=== PATIENT | male | born 1950 | race Caucasian/White ===

== ENCOUNTER → 2018-08-08 | Outpatient (REF) | payer MEDICARE ==
[~2018-08-08] MED LIST: CELEXA40 M1 PO; ENALAPRIL10 MG PO; FENOFIBRATE145 MG PO; GABAPENTIN300 MG PO; GLIPIZIDE ER5 MG PO; LOVASTATIN40 M1 PO
== END | disposition home or self-care (01) ==
LOC: CT 10:31
PROVIDERS: ATTEND Internal Medicine
DX: R42 Dizziness and giddiness (principal)

== ENCOUNTER 2018-10-10 14:55 | Emergency (ER) | payer MEDICARE ==
[~2018-10-10] VITALS: Ht 170.2 cm; Wt 94.0 kg
[2018-10-10 14:55] VITALS: BP 172/78
[2018-10-10] MEDS ORDERED: TRAZODONE50 MG PO (15:14)
[2018-10-10 16:47] LABS: URINE BILIRUBIN - DIPSTICK NEGATIVE (NEGATIVE); URINE BLOOD DIPSTICK NEGATIVE (NEGATIVE); URINE COLOR YELLOW; URINE GLUCOSE - DIPSTICK NEGATIVE (NEGATIVE); URINE KETONE NEGATIVE (NEGATIVE); URINE LEUK ESTERASE NEGATIVE (NEGATIVE); URINE NITRITE - DIPSTICK NEGATIVE (Negative); URINE PROTEIN - DIPSTICK NEGATIVE (NEG-TRACE); URINE SPECIFIC GRAVITY >=1.030; URINE UROBILINOGEN - DIPSTICK 0.2 E.U./dL (0.2)
[2018-10-10 16:49] LABS: URINE CLARITY CLEAR
[2018-10-10] MEDS ORDERED: TRAMADOL HYDROC50 MG PO (17:36)
[2018-10-10] MEDS ORDERED: FLEXERIL PO (17:36)
[2018-10-10] MEDS ORDERED: DICLOFENAC75 MG PO (17:51)
[2018-10-10] MEDS ORDERED: MELOXICAM7.5 MG PO (17:56)
[2018-10-10] MEDS ORDERED: MIRAPEX0.25 MG PO (17:57)
[2018-10-10] MEDS ORDERED: TAMSULOSIN HCL0.4 MG PO (17:57)
[2018-10-10] MEDS ORDERED: TRAMADOL HCL50 MG PO (17:58)
== END 2018-10-10 18:10 | disposition home or self-care (01) ==
LOC: ED 14:55
DX: M54.5 Low back pain (principal); M62.830 Muscle spasm of back; I10 Essential (primary) hypertension; E11.9 Type 2 diabetes mellitus without complications; E78.5 Hyperlipidemia, unspecified; N40.0 Benign prostatic hyperplasia without lower urinary tract symptoms

== ENCOUNTER → 2019-01-16 | Outpatient (REF) | payer MEDICARE ==
[~2019-01-16] VITALS: Ht 170.2 cm; Wt 93.9 kg
[~2019-01-16] MED LIST changes: +DICLOFENAC75 MG PO; +FLEXERIL PO; +MELOXICAM7.5 MG PO; +MIRAPEX0.25 MG PO; +TAMSULOSIN HCL0.4 MG PO; +TRAMADOL HCL50 MG PO; +TRAMADOL HYDROC50 MG PO; +TRAZODONE50 MG PO
[2019-01-16 09:03] VITALS: BP 146/70
== END ==
LOC: FIORUCCI 08:39
PROVIDERS: ATTEND Surgery
PROC: 0H9DXZZ Drainage of Right Lower Arm Skin, External Approach (ICD-10-PCS; principal; 2019-01-16)
DX: L02.413 Cutaneous abscess of right upper limb (principal); S51.851A Open bite of right forearm, initial encounter; W55.01XA Bitten by cat, initial encounter

== ENCOUNTER → 2019-01-20 | Outpatient (REF) | payer MEDICARE ==
[2019-01-20 11:24] VITALS: BP 158/81
== END ==
LOC: FIORUCCI 01-18 09:30
PROVIDERS: ATTEND Surgery
DX: Z48.01 Encounter for change or removal of surgical wound dressing (principal)

== ENCOUNTER 2019-02-16 17:54 | Emergency (ER) | payer MEDICARE ==
[~2019-02-16] VITALS: Ht 170.2 cm; Wt 92.8 kg
[~2019-02-16 17:54] MED LIST changes: -FENOFIBRATE145 MG PO; +FENOFIBRATE160 MG PO; +MIRAPEX0.125 MG PO; -MIRAPEX0.25 MG PO
[2019-02-16] MEDS ORDERED: AMLODIPINE5 MG PO (19:15)
[2019-02-16 19:16] LABS: HEMATOCRIT 38.8 % (39.0-50.0); HEMOGLOBIN 12.5 g/dl (14.0-18.0); IMMATURE GRANULOCYTES 0.2 % (0.0-5.0); MEAN CELL VOLUME 91.5 fL CALC (80.0-100.0); MEAN CORPUSCULAR HGB 29.5 pG CALC (26.0-32.0); MEAN CORPUSCULAR HGB CONC 32.2 g/L CALC (32.0-36.0); NEUT# 5.41 thou/uL (1.82-7.42); RED BLOOD COUNT 4.24 mill/uL (4.70-6.10)
[2019-02-16 19:37] LABS: ALKALINE PHOSPHATASE 31 u/l (38-126); ANION GAP 17 (6-22 (CALC)); BILIRUBIN, TOTAL 0.5 mg/dL (0.0-1.4); BUN 18 mg/dL (8-23); BUN/CREATININE RATIO 15 (12-20 (CALC)); CARBON DIOXIDE 21 mmol/l (22-30); CHLORIDE 107 mmol/l (95-108); CREATININE 1.2 mg/dL (0.7-1.3); GFR > 60 ML/MIN (>=60 (CALC)); GFR FOR AFR.AMER. > 60 ML/MIN (>=60 (CALC)); POTASSIUM 4.8 mmol/l (3.5-5.1); SGOT/AST 36 u/l (19-48); SODIUM 140 mmol/l (137-146)
[2019-02-16 19:46] LABS: ALBUMIN 4.9 g/dL (3.2-5.0)
[2019-02-16] MEDS ORDERED: AUGMENTIN875TAB PO (22:36)
[2019-02-16 22:50] VITALS: BP 128/67
== END 2019-02-16 22:53 | disposition home or self-care (01) ==
LOC: ED 17:54
PROVIDERS: Emergency Medicine
DX: L02.413 Cutaneous abscess of right upper limb (principal); S51.851A Open bite of right forearm, initial encounter; I10 Essential (primary) hypertension; W55.01XA Bitten by cat, initial encounter

== ENCOUNTER 2019-02-23 09:28 | Day surgery (SDC) | payer MEDICARE ==
[~2019-02-23 09:28] MED LIST changes: +AMLODIPINE5 MG PO; +AUGMENTIN875TAB PO
[2019-02-23 10:24] LABS: BARBITURATES NEGATIVE (NEGATIVE); COCAINE NEGATIVE (NEGATIVE); METHADONE NEGATIVE (NEGATIVE); OXCYCODONE NEGATIVE (NEGATIVE); TETRAHYDROCANNABIONOL POSITIVE (NEGATIVE); TRICYLIC ANTIDEPRESSANTS NEGATIVE (NEGATIVE)
[2019-02-23] MEDS ORDERED: PERCOCET 5/325M1 TAB PO ×2 (11:49→11:51)
[2019-02-23 12:35] VITALS: BP 122/58
[2019-02-23] MEDS ORDERED: AUGMENTIN875TAB PO (12:50)
== END 2019-02-23 13:05 | disposition home or self-care (01) ==
LOC: ORM 09:28
PROVIDERS: ATTEND Surgery
PROC: 0H9DXZZ Drainage of Right Lower Arm Skin, External Approach (ICD-10-PCS; principal; 2019-02-23)
DX: L02.413 Cutaneous abscess of right upper limb (principal); S51.851A Open bite of right forearm, initial encounter; W55.01XA Bitten by cat, initial encounter
CPT/HCPCS: J0131

== ENCOUNTER 2023-01-30 14:47 | Inpatient (IN) | payer MEDICARE ==
[~2023-01-30] VITALS: Ht 170.2 cm; Wt 73.6 kg
[2023-01-30] VITALS (18 sets, daily range): BP systolic 83–125; BP diastolic 46–66
[~2023-01-30 14:47] MED LIST changes: -MIRAPEX0.125 MG PO; +PERCOCET 5/325M1 TAB PO; +PRAMIPEXOLE D0.25 MG PO; +TRAZODONE100 MG PO; -TRAZODONE50 MG PO
[2023-01-30 15:44] LABS: BASO% 0.2 % (0-3); EOS% 0.3 % (0-8); HEMATOCRIT 33.8 % (39.0-50.0); HEMOGLOBIN 10.9 g/dl (14.0-18.0); IMMATURE GRANULOCYTES 0.6 % (0.0-5.0); LYMPH% 7.6 % (15-41); MEAN CELL VOLUME 90.4 fL CALC (80.0-100.0); MEAN CORPUSCULAR HGB 29.1 pG CALC (26.0-32.0); MEAN CORPUSCULAR HGB CONC 32.2 g/dL CAL (32.0-36.0); MONO% 3.4 % (2-13); NEUT# 9.04 thou/uL (1.82-7.42); NEUT% 87.9 % (42-76); RED BLOOD COUNT 3.74 mill/uL (4.70-6.10); RED CELL DISTRI WIDTH 12.9 % (11.5-15.5)
[2023-01-30 15:58] LABS: POTASSIUM 4.7 mmol/l (3.5-5.1); TOTAL PROTEIN 6.7 g/dL (6.3-8.2)
[2023-01-30 16:03] LABS: ALBUMIN 3.6 g/dL (3.2-5.0); BILIRUBIN, TOTAL 0.8 mg/dL (0.2-1.3); CREATININE 9.8 mg/dL (0.7-1.3)
--- NOTE | 2023-01-30 18:19 | NUR ---
per ems, pt is coming from home for weakness and low bp. per ems, they were called to the pts house yeterday for low bs, and pt refused transport to er.
--- NOTE | 2023-01-30 19:15 | NUR ---
ASSUMED CARE OF THE PT AT THIS TIME
--- NOTE | 2023-01-30 20:25 | NUR ---
CBG 37 EDP MADE AWARE AND NEW ORDERS RECEIVED, D50 AM PULLED AND GIVEN TO THE PT.
--- NOTE | 2023-01-30 21:04 | NUR ---
CBG 229 EDP MADE AWARE.
--- NOTE | 2023-01-30 21:57 | NUR ---
PT IS TRANSFERRED TO [facility]. REPORT GIVEN TO MANJINDER. PT TRANSPORTED VIA STRETCHER. 16 FR WHITE WAS INITIATED PER ADMITTED PHYSICIAN'S REQUEST.PT TOLERATED PLACEMENT WELL.
--- NOTE | 2023-01-30 22:00 | NUR ---
PT ARRIVE TO UNIT VIA STRETCHER ACCOMPANIED BY ER STAFF, PT SLIDE HIMSEF TO BED. PT A&OX3 ABLE TO MADE NEEDS KNOW. PT IS ON 2L VIA NASAL CANNULA. BREATHING IS EVEN AND UNLABORED. NO S/S OF DISTRESS NOTED. NON-PRODUCTIVE COUGH NOTED. PT HAS A 20G TO LAC AND RAC BOTH PATENT AND FLUSHES WELL. PT HAS A BRUISE TO RIGHT KNEE AND A ABRASION TO RIGHT ILIAC REGION. AND SCRATCHES TO BOTH OF HIS FEET. PT IS AIRBORN ISOLATION. PT REPORT TRAVELING TO [facility] VIA SHIP AND WHEN RETURN HE BEEN HAVING POOR APPETITE AND GETTING WEEK. PT HAS A WHITE CATH IN PLACE DRAING WELL. URINE IS CLEAR AND YELLOW. PT IS ON TELE. NO NEED OR CONCERS VOICED AT THIS TIME. CALL LIGHT IN REACH AND BED IN LOWEST POSITION.
--- NOTE | 2023-01-31 00:11 | NUR ---
PT REPORT NOT HAVING A BM IN THE LAST 3 DAYS. PT REQUESTED SOME LAXITIVES. MILK OF MAG. ADMINISTERED PER DEC. MED REC COMPLETED. NO OTHER NEED OR CONCERS VOINCED. NO S/S OF DISTRESS NOTED. CALL LIGHT IN REACH AND BED IN LOWEST POSITION.
[2023-01-31] MEDS ORDERED: FINASTERIDE5 MG PO (00:52)
[2023-01-31] MEDS ORDERED: COZAAR50 MG PO (01:08)
[2023-01-31] MEDS ORDERED: KP FOLIC ACID1 MG PO (01:10)
[2023-01-31] MEDS ORDERED: COLACE100 MG PO (01:12)
[2023-01-31 01:28] VITALS: BP 99/47
[2023-01-31 01:42] LABS: URINE BILIRUBIN - DIPSTICK NEGATIVE (NEGATIVE); URINE BLOOD DIPSTICK LARGE (NEGATIVE); URINE COLOR YELLOW; URINE GLUCOSE - DIPSTICK NEGATIVE (NEGATIVE); URINE KETONE NEGATIVE (NEGATIVE); URINE PH 5.5 (4.5-8.0); URINE PROTEIN - DIPSTICK 30 mg/dL (NEG-TRACE); URINE SPECIFIC GRAVITY 1.025; URINE UROBILINOGEN - DIPSTICK 0.2 E.U./dL (0.2)
[2023-01-31 01:51] LABS: URINE NITRITE - DIPSTICK NEGATIVE (Negative)
[2023-01-31 01:53] LABS: URINE LEUK ESTERASE NEGATIVE (NEGATIVE)
[2023-01-31 01:54] LABS: URINE BACTERIA MODERATE hpf; URINE EPITHELIAL CELLS MODERATE EPI/hpf (0-FEW); URINE YEAST MODERATE hpf
[2023-01-31 04:10] VITALS: BP 94/51
--- NOTE | 2023-01-31 04:53 | NUR ---
PT IN BED RESTING WITH EYES CLOSED. BREATHING IS EVEN AND UNLABORED. NO S/S OF DISTRESS NOTED. CALL LIGHT IN REACH AND BED IN LOWEST POSITION.
[2023-01-31 05:22] LABS: BASO% 0.2 % (0-3); EOS% 0.9 % (0-8); HEMATOCRIT 30.8 % (39.0-50.0); HEMOGLOBIN 10.2 g/dl (14.0-18.0); IMMATURE GRANULOCYTES 0.6 % (0.0-5.0); LYMPH% 9.5 % (15-41); MEAN CELL VOLUME 86.3 fL CALC (80.0-100.0); MEAN CORPUSCULAR HGB 28.6 pG CALC (26.0-32.0); MEAN CORPUSCULAR HGB CONC 33.1 g/dL CAL (32.0-36.0); MONO% 3.7 % (2-13); NEUT# 7.51 thou/uL (1.82-7.42); NEUT% 85.1 % (42-76); RED BLOOD COUNT 3.57 mill/uL (4.70-6.10); RED CELL DISTRI WIDTH 12.6 % (11.5-15.5)
[2023-01-31 06:02] LABS: ALBUMIN 3.1 g/dL (3.2-5.0); BILIRUBIN, TOTAL 0.5 mg/dL (0.2-1.3); C-REACTIVE PROTEIN 8.1 mg/dL (0-0.9); POTASSIUM 4.3 mmol/l (3.5-5.1); TOTAL PROTEIN 5.9 g/dL (6.3-8.2)
[2023-01-31 06:23] LABS: CREATININE 8.5 mg/dL (0.7-1.3)
--- NOTE | 2023-01-31 06:35 | NUR ---
RECEIVED CRITICAL RESULTS FROM LAB, PATIENT NURSE MADE AWARE.
--- NOTE | 2023-01-31 06:42 | NUR ---
I RECEIVE A CRITICAL LAB FOR THIS PT. CREATININE 8.5, BUN 110, GLUCOSE 53. IV BOLUS OF DEXTROSE 10% INFUSION AT THIS TIME. DR. MOSER NOTIFIED NO NEW ORDES AT THIS TIME.
[2023-01-31 07:07] VITALS: BP 113/58
--- NOTE | 2023-01-31 08:00 | NUR ---
PT IN BED RESTING WITH HOB UPALERT AND ORIENTED X3. PT HAS C/O ABD PAIN OFF AND ON. TELE ON WITH ALL LEADS ATTACHED. IV TO RAC AND LAC CLEAN AND INTACT WITH NS @ 125 ML/HR. WHITE CATH DARK YELLOW URINE. PT HAS CALL LIGTH WITHIN REACH AND ALL SAFETY MEASURES IN PLACE AT THIS TIME.
--- NOTE | 2023-01-31 10:00 | NUR ---
nurse notified patient glucose level was 66. given orange juice.
--- NOTE | 2023-01-31 16:26 | NUR ---
PT OUT OF BED IN CHAIR AT BEDSIDE. PT ALERT AND ORTENTED WITH NO CHANGE IN STATUS AT THIS ITME. PT HAS CALL LIGHT WITHIN REACH AT THIS TIME
[2023-01-31 16:38] VITALS: BP 118/61
[2023-01-31 16:39] VITALS: BP 118/61
[2023-01-31 20:24] VITALS: BP 131/65
--- NOTE | 2023-01-31 20:25 | NUR ---
PT IN BED AWAKE WATCHING TV. ASSESMENT COMPLETED AT THIS TIME. BREATHING IS EVEN AND UNLABORED. NO S/S OF DISTRESS NOTED. PT REPORTS ABDOMINAL DISCOMFOERT. PT MEDICATED PER MAR. NO OTHER NEEDS OR CONCERN VOICED AT THIS TIME. CALL LIGHT IN REACH AND BED INLOWEST POSITION.
[2023-02-01] VITALS (9 sets, daily range): BP systolic 127–144; BP diastolic 61–73
--- NOTE | 2023-02-01 00:35 | NUR ---
PT IN BED RESTING WITH EYES CLOSED BREATHING EVEN AND UNLABORED. NO S/S OF DISTRESS NOTED. CALL LIGHT IN REACH AND BED IN LOWEST POSITION.
--- NOTE | 2023-02-01 04:55 | NUR ---
pt assisted to bath room. daily stading weight optain. pt is one assist. pt transfer to recliner. call light in reach and bed in lowest position.
[2023-02-01 05:37] LABS: HEMATOCRIT 31.1 % (39.0-50.0); HEMOGLOBIN 10.1 g/dl (14.0-18.0); MEAN CELL VOLUME 86.4 fL CALC (80.0-100.0); MEAN CORPUSCULAR HGB 28.1 pG CALC (26.0-32.0); MEAN CORPUSCULAR HGB CONC 32.5 g/dL CAL (32.0-36.0); RED BLOOD COUNT 3.6 mill/uL (4.70-6.10); RED CELL DISTRI WIDTH 12.8 % (11.5-15.5)
[2023-02-01 06:06] LABS: CARBON DIOXIDE 18 mmol/l (22-30); CHLORIDE 108 mmol/l (95-108); CPK 368 u/l (55-170); GFR FOR AFR.AMER. 12 ML/MIN (>=60 (CALC)); GFR OTHER RACES 10 ML/MIN (>=60 (CALC)); MAGNESIUM 2.7 mg/dL (1.6-2.3); POTASSIUM 4.9 mmol/l (3.5-5.1); SODIUM 136 mmol/l (137-146)
[2023-02-01 06:26] LABS: BUN 100 mg/dL (8-23); CREATININE 5.6 mg/dL (0.7-1.3)
--- NOTE | 2023-02-01 12:47 | NUR ---
Pt back in bed with the help of physical therapy. Pt got his lunch tray. Pt put his call light on, Staff went in room to assist. Pt say the IV was beeping nurse was notify. Pt show no sign of distress or discomfort at this time.
--- NOTE | 2023-02-01 14:23 | NUR ---
Staff heard pt IV pump beeping knock on door enter pt rm silence IV pump notify the nurse. Pt was a sleep. Staff heard pt IV pump going back off again went in rm to assist with the issue, pt was awake looking on his phone. Staff silence IV pump until the nurse can fix the issue. Pt said to staff that he had to turn IV pump off 4-5 times. Staff explain to pt that the IV pump wasn't going off 4-5 times. Because, staff already came in his rm to silence the pump and he was asleep at that time.
--- NOTE | 2023-02-01 20:00 | NUR ---
PATIENT RESTING IN BED AT THIS TIME-AWAKE ALERT AND ORIENTEDX3. PATIENT ON ISOLATION FOR COVID. IV PUMP FOUND OFF-CONNNECTED TO LEFT AC SITE. EXPLAINED TO THE PATIENT THAT THE IVF WAS AN IMPORTANT PART OF HIS CURRENT TREATMENT FOR DEBORA AND RHABDO. IVF RECONNECTED TO THE IV SITE TO RIGHT FOREARM INFUSING AT 125CC/HR. PATIENT STATES THAT THE WHITE CATH WAS REMOVED THIS AFTERNOON AND HE HASN'T BEEN ABLE TO VOID SINCE. INSTRUCTED PATIENT TO USE THE URINAL WHEN HE WAS ABLE TO VOID FOR ACCURATE I&O. VERBALIZES UNDERSTANDING. STATES THAT HE DOES CONT TO HAVE LOOSE STOOLS. LUNGS ARE CLEAR. ABD IS SOFT WITH ACTIVE BS. NO PERIPHERAL EDEMA NOTED. PULSES ARE PALPABLE. SAFETY PRECAUTIONS REINFORCED. CALL LIGHT IN REACH. WILL CONT TO MONITOR.
--- NOTE | 2023-02-01 23:00 | NUR ---
PATIENT UP AND DOWN TO THE BR TO HAVE MULTIPLE LOOSE STOOLS. STATES THAT HE IS VOIDING A LITTLE EACH TIME BUT CAN'T PLACE THE SPEC IN URINAL BECAUSE IT JUST GOES IN THE TOILET WHEN HE IS HAVING BM. IVF PATENT ANDINFUSING VIA RAC ORDERED. TELE MONITOR IN PLACE. PATIENT WITH MULTIPLE SCABBED AREAS TO BLE-LEFT FOOT AND BANDAID APPLIED. RIGHT KEEN WITH A COUPLE OF DIFFERENT AREAS THAT ARE SCABBED OVER. NO DRAINAGE AT THIS TIME. STATES THAT THESE WOUNDS ARE FROM WHEN HE FELL AT HOME AND COULDN'T GET UP. SAFETY PRECAUTIONS REINFORCED. CALL LIGHT IN REACH. WILL CONT TO MONITOR.
--- NOTE | 2023-02-02 00:59 | NUR ---
PATIENT STILL NOT ABLE TO VOID IN URINAL. B LADDER SCAN FOR 399CC OF URINE. #16 GEORGIAN WHITE INSERTED WITHOUT ANY DIFFICULTY AND DRAINED APPROX 500CC OF CLEAR YELLOW URINE. IVF SITE TO LEFT FOREARM DISLODGED WITH CATH INTACT. PATIENT CONT TO TAKE PO FLUIDS WELL. IVF NS PATENT AND INFUSING VIA RAC SITE AT 80CC/HR. TELE MONITOR IN PLACE. CALL LIGHT IN REACH. WILL CONT TO MONITOR.
--- NOTE | 2023-02-02 02:48 | NUR ---
PATIENT RESTING IN BED WITH HOB ELEVATED AND EYES CLOSED. RESPS ARE EVEN AND UNLABORED. IVF PATENT AND INFUSING VIA RIGHT AC SITE AT 80CC/HR. TELE MONITOR IN PLACE. WHITE CONT TO DRAIN CLEAR YELLOW URINE. CALL LIGHT IN REACH, WILL CONT TO MONITOR.
[2023-02-02 04:30] VITALS: BP 114/52
[2023-02-02 04:50] VITALS: BP 114/52
--- NOTE | 2023-02-02 05:00 | NUR ---
PATIENT RESTING IN BED-AWAKE WITH NO COMPLAINTS. TELE BATTERY CHANGED. LAST READING WAS SR-63. WHITE CATH PATENT AND DRAINING YELLOW URINE-TOTAL OUTPUT 800CC. IVF NS PATENT AND INFUSING VIA RIGHT AC SITE AT 80CC/HR. SAFETY PRECAUTIONS REINFORCED. CALL LIGHT IN REACH. WILL CONT TO MONITOR.
[2023-02-02 05:36] LABS: BASO% 0.1 % (0-3); HEMATOCRIT 31.8 % (39.0-50.0); HEMOGLOBIN 10.3 g/dl (14.0-18.0); LYMPH% 7.6 % (15-41); MEAN CELL VOLUME 87.4 fL CALC (80.0-100.0); MEAN CORPUSCULAR HGB 28.3 pG CALC (26.0-32.0); MEAN CORPUSCULAR HGB CONC 32.4 g/dL CAL (32.0-36.0); MONO% 5.6 % (2-13); NEUT# 6.75 thou/uL (1.82-7.42); NEUT% 85.7 % (42-76); RED BLOOD COUNT 3.64 mill/uL (4.70-6.10); RED CELL DISTRI WIDTH 12.8 % (11.5-15.5)
[2023-02-02 05:57] LABS: ALBUMIN 3.4 g/dL (3.2-5.0); BILIRUBIN, TOTAL 0.4 mg/dL (0.2-1.3); C-REACTIVE PROTEIN 4.6 mg/dL (0-0.9); POTASSIUM 4.6 mmol/l (3.5-5.1); TOTAL PROTEIN 6.6 g/dL (6.3-8.2)
[2023-02-02 06:03] LABS: CREATININE 3.3 mg/dL (0.7-1.3)
[2023-02-02 06:27] VITALS: BP 118/59
--- NOTE | 2023-02-02 06:52 | NUR ---
IV SITE TO RAC INFILTRATED WITH CATH INTACT. NEW IV SITE STARTED TO LEFT FOREARM-#22 GAUGE WITH GOOD BLOOD RETURN. IVF PATENT AND INFUSING AT 80CC/HR. CALL LIGHT IN REACH. WILL CONT TO MONITOR.
[2023-02-02 10:40] VITALS: BP 123/73
[2023-02-02] MEDS ORDERED: DEXAMETHASON6 MG PO (10:57)
[2023-02-02] MEDS ORDERED: DICYCLOMINE HCL10 MG PO (10:58)
== END 2023-02-02 13:05 | DRG 682 ==
LOC: ED 14:47 → ED-I 20:16 → ED 20:25 → MS2 20:26
PROVIDERS: Family Medicine; Internal Medicine Nephrology; ADMIT Internal Medicine; ATTEND Internal Medicine
PROC: 0T9B70Z Drainage of Bladder with Drainage Device, Via Natural or Artificial Opening (ICD-10-PCS; principal; 2023-01-30)
PROC: 0T9B70Z Drainage of Bladder with Drainage Device, Via Natural or Artificial Opening (ICD-10-PCS; 2023-02-02)
DX: N17.0 Acute kidney failure with tubular necrosis (principal); U07.1 COVID-19; M62.82 Rhabdomyolysis; A04.0 Enteropathogenic Escherichia coli infection; E87.20 Acidosis, unspecified; I95.9 Hypotension, unspecified; E86.9 Volume depletion, unspecified; I12.9 Hypertensive chronic kidney disease with stage 1 through stage 4 chronic kidney disease, or unspecified chronic kidney disease; E11.22 Type 2 diabetes mellitus with diabetic chronic kidney disease; N18.30 Chronic kidney disease, stage 3 unspecified; E86.0 Dehydration; E11.649 Type 2 diabetes mellitus with hypoglycemia without coma; R10.84 Generalized abdominal pain; N40.1 Benign prostatic hyperplasia with lower urinary tract symptoms; R33.8 Other retention of urine; D64.9 Anemia, unspecified; Z79.84 Long term (current) use of oral hypoglycemic drugs